=== PATIENT | male | born 1975 | race Hispanic/Latino ===

== ENCOUNTER 2019-11-16 22:23 | Emergency (ER) | payer SELFPAY ==
[~2019-11-16] VITALS: Ht 165.1 cm; Wt 108.0 kg
[2019-11-16 22:49] LABS: BASOPHILS % 0.5 % (0.0-1.0); EOSINOPHILS # (AUTO) 0.1 (0.0-0.4); EOSINOPHILS % 1.5 % (0.0-6.0); HEMOGLOBIN 16.2 g/dL (14.0-18.0); LYMPHOCYTES # (AUTO) 2.2 (1.0-3.2); LYMPHOCYTES % 27.7 % (18.0-39.1); MEAN CORPUSCULAR HGB CONC 35.2 g/dL (31-35); MEAN CORPUSCULAR VOLUME 82.3 fL (81-99); MONOCYTES # (AUTO) 0.6 (0.2-0.8); MONOCYTES % 7.5 % (4.4-11.3); NEUTROPHILS # (AUTO) 4.9 (2.1-6.9); NEUTROPHILS % 62.2 % (38.7-80.0); PLATELET COUNT 317 x10e3/uL (140-360); RED BLOOD COUNT 5.59 x10e6/uL (4.3-5.7); RED CELL DISTRIBUTION WIDTH 12.4 % (11.7-14.4)
[2019-11-16 23:04] LABS: ANION GAP 20.4 mmol/L (8-16); CALCIUM 9.1 mg/dL (8.4-10.2); CREATININE, SERUM 1.29 mg/dL (0.72-1.25); POTASSIUM 4.4 mmol/L (3.5-5.1)
[2019-11-16] MEDS ORDERED: SODIUM CHLORIDE 0.9% 1000ML 1,000 ML IV ONE (23:15)
[2019-11-16] MEDS ORDERED: INSULIN REGULAR, HUMAN 100 UNIT/1 ML 3ML VIAL SQ ONE (23:15)
[2019-11-16] MEDS ORDERED: INSULIN REGULAR, HUMAN 100 UNIT/1 ML 3ML VIAL IV ONE (23:15)
--- OUTSIDE RECORDS SUMMARY | 2019-11-17 00:17 | XMS REPORT | Continuity of Care Document ---
Author Author [facility] t Organization [facility] Address [address] [place] [address] Phone Unavailable Care Team Providers Care Artistic Director Name Role Phone Unavailable Unavailable Payers Payer Name Policy Type Policy Number Effective Date Expiration Date S ource Problems This patient has no known problems. Allergies, Adverse Reactions, Alerts Allergy Name Allergy Type Status Severity Reaction(s) Onset Date Inacti ve Date Treating Clinician Comments Source No Known Allergies DA Active U 2019-01-04 00:00:00 [facility] No Known Allergies DA Active U 2018-01-12 00:00:00 [facility] Medications This patient has no known medications. Procedures This patient has no known procedures. Results Test Description Test Time Test Comments Results Result Comments Source COMPREHENSIVE METABOLIC PANEL 2019-01-04 15:14:00 Test Item SODIUM (test code = NA) 133 mmol/L 135-148 L POTASSIUM (test code = K) 3.4 mmol/L 3.5-5.1 L CHLORIDE (test code = CL) 97 mmol/L 101-109 L CARBON DIOXIDE (test code = CO2) 26.3 mmol/L 21-32 N ANION GAP (test code = GAP) 13 mmol/L 10-20 N GLUCOSE (test code = GLU) 369 mg/dL 74-106 H BLOOD UREA NITROGEN (test code = BUN) 9 mg/dL 3-21 N CREATININE (test code = CREAT) 1.03 mg/dL 0.55-1.3 N BUN/CREATININE RATIO (test code = BUN/CREA) 8.7 10-20 L TOTAL PROTEIN (test code = PROT) 6.8 g/dL 6.5-8.4 N ALBUMIN (test code = ALB) 2.9 g/dL 3.4-4.8 L GLOBULIN (test code = GLOB) 3.9 G/DL 1-10 N ALBUMIN/GLOBULIN RATIO (test code = A/G) 0.7 RATIO 0.75-1.50 L CALCIUM (test code = CA) 8.8 mg/dL 8.4-10.2 N BILIRUBIN TOTAL (test code = BILT) 1.60 mg/dL 0.0-1.0 H SGOT/AST (test code = AST) 15 U/L 6-32 N SGPT/ALT (test code = ALT) 28 U/L 12-78 N N ote: Change in REFERENCE RANGE due to new reagent method. ALKALINE PHOSPHATASE TOTAL (test code = ALKP) 47 U/L 38-126 N CBC W/AUTO [id number] 14:39:00* Test Item Value Reference Range Interpretation Comments WHITE BLOOD CELL (test code = WBC) 11.4 K/mm3 4.5-12.5 N RED BLOOD CELL (test code = RBC) 4.99 mill/mm3 4.0-5.8 N HEMOGLOBIN (test code = HGB) 14.6 gram/dL 13.0-17.5 N HEMATOCRIT (test code = HCT) 40.3 % 42.0-52.0 L MEAN CELL VOLUME (test code = MCV) 80.8 fL 80-98 N MEAN CELL HGB (test code = MCH) 29.3 picogram 27.0-33.0 N MEAN CELL HGB CONCETRATION (test code = MCHC) 36.2 gram/dL 33.0-36. 0 H RED CELL DISTRIBUTION WIDTH (test code = RDW) 11.7 % 11.6-16. 2 N RED CELL DISTRIBUTION WIDTH SD (test code = RDW-SD) 35.1 fL 37 .0-51.0 L PLATELET COUNT (test code = PLT) 243 K/mm3 150-450 N MEAN PLATELET VOLUME (test code = MPV) 10.7 fL 6.7-11.0 N NEUTROPHIL % (test code = NT%) 76.2 % 39.0-69.0 H LYMPHOCYTE % (test code = LY%) 16.5 % 25.0-55.0 L MONOCYTE % (test code = MO%) 5.0 % 0.0-10.0 N EOSINOPHIL % (test code = EO%) 1.6 % 0.0-5.0 N BASOPHIL % (test code = BA%) 0.3 % 0.0-1.0 N NEUTROPHIL # (test code = NT#) 8.70 K/mm3 1.8-7.7 H LYMPHOCYTE # (test code = LY#) 1.89 K/mm3 1.0-5.0 N MONOCYTE # (test code = MO#) 0.57 K/mm3 0-0.8 N EOSINOPHIL # (test code = EO#) 0.18 K/mm3 0.0-0.5 N BASOPHIL # (test code = BA#) 0.03 K/mm3 0.0-0.2 N URINALYSIS [id number] 14:35:00* Test Item Value Reference Range Interpretation Comments UA COLOR (test code = COLU) YELLOW YELLOW UA APPEARANCE (test code = APPU) CLEAR CLEAR UA GLUCOSE DIPSTICK (test code = DGLUU) 1000 (3+) mg/dL NEGATIVE A UA BILIRUBIN DIPSTICK (test code = BILU) NEGATIVE mg/dL NEGATIVE UA KETONE DIPSTICK (test code = KETU) 5 (Trace) mg/dL NEGATIVE A UA SPECIFIC GRAVITY (test code = SGU) 1.020 1.001-1.035 UA BLOOD DIPSTICK (test code = GWEN) neg [place]/uL NEGATIVE UA PH DIPSTICK (test code = LES) 5.0 5.0-8.0 UA PROTEIN DIPSTICK (test code = PROU) neg mg/dL Neg-15 UA UROBILINIOGEN DIPSTICK (test code = URO) norm mg/dL 0.0-0.2 UA NITRITE DIPSTICK (test code = MYNOR) NEGATIVE NEGATIVE UA LEUKOCYTE ESTERASE DIPSTICK (test code = LEUU) neg uL NEGA TIVE UA WBC (test code = WBCU) NONE SEEN per HPF 0-5 UA RBC (test code = RBCU) NONE SEEN per HPF 0-5 UA EPITHELIAL CELLS (test code = EPIU) Rare (0-1/hpf) per HPF Few UA BACTERIA (test code = BACU) TRACE per HPF NONE Urine Source? Clean CatchBASIC METABOLIC [id number] 14:26:00* Test Item Value Reference Range Interpretation Comments SODIUM (test code = NA) 136 mmol/L 135-148 N POTASSIUM (test code = K) 3.7 mmol/L 3.5-5.1 N CHLORIDE (test code = CL) 100 mmol/L 101-109 L CARBON DIOXIDE (test code = CO2) 27.7 mmol/L 21-32 N ANION GAP (test code = GAP) 12 mmol/L 10-20 N GLUCOSE (test code = GLU) 290 mg/dL 74-106 H BLOOD UREA NITROGEN (test code = BUN) 13 mg/dL 3-21 N GLOMERULAR FILTRATION RATE (test code = GFR) > 60 mL/min >=60 Estimated GFR by using Modified MDRD formula.Chronic kidney disease is defined as either kidney damageor GFR <60 mL/min/1.73 m2 for >3 months. CREATININE (test code = CREAT) 0.89 mg/dL 0.55-1.3 N BUN/CREATININE RATIO (test code = BUN/CREA) 14.6 10-20 N CALCIUM (test code = CA) 9.3 mg/dL 8.4-10.2 N [id number] 14:26:00* Test Item Value Reference Range Interpretation Comments TROPONIN-I (test code = TROPI) <0.015 ng/mL 0.00-0.056 N - CT HEAD/BRAIN W/O [id number] 14:10:00 Name: DIONAMNA [facility] : 1975 Age/S: 43 / M [address] [facility] Unit #: [id number] Loc: [place] [address] Phys: JohnMatShawanda DO Acct: [id number] Dis Date: Status: REG ER PHONE #: [phone] Exam Date: 10/14/2018 1325 FAX #: [phone] Reason: dizziness EXAMS: CPT CODE: [id number] CT HEAD/BRAIN W/O CONT 66949 HISTORY: dizziness TECHNIQUE: Noncontrast 2.[address] of the head. Examination acquired within 24 hours of arrival. Automated exposure control for dose reduction. COMPARISON: None FINDINGS: No acute hemorrhage. No intracranial mass, mass effect, or midline shift. No CT evidence of acute infarct. Lemos-white matter differentiation is preserved. No hydrocephalus. No extra-axial fluid collection. Bilateral maxillary sinus polyps. Remainder of the paranasal sinuses are clear.. Right mastoid air cells and middle ear cavities are clear. Partial opacification of the left mastoid air cells. Copious amount of cerumen is present in the bilateral external auditory canals.. Orbital contents are unremarkable. Calvarium and skull base are intact. Nonfusion of the posterior elements of C1 is noted incidentally. IMPRESSION: No acute intracranial process. Partial opacification of the left mastoid air cells. Please co rrelate clinically for mastoiditis. at 1410 Reported and signed by: Raymundo Ospina MD CC: Shawanda Lopez DO Technologist:KIKI RUSSELL RT(R),CT CTDI: DLP: Trnscb Date/Time: 10/14/2018 (1410) [id number] Orig Print D/T: S: 10/14/2018 (5191) PAGE 1 Signed Report BASIC METABOLIC [id number] 14:03:00* Test Item Value Reference Range Interpretation Comments SODIUM (test code = NA) 136 mmol/L 135-148 N POTASSIUM (test code = K) 3.7 mmol/L 3.5-5.1 N CHLORIDE (test code = CL) 100 mmol/L 101-109 L CARBON DIOXIDE (test code = CO2) 27.7 mmol/L 21-32 N ANION GAP (test code = GAP) 12 mmol/L 10-20 N GLUCOSE (test code = GLU) 290 mg/dL 74-106 H BLOOD UREA NITROGEN (test code = BUN) 13 mg/dL 3-21 N GLOMERULAR FILTRATION RATE (test code = GFR) > 60 mL/min >=60 Estimated GFR by using Modified MDRD formula.Chronic kidney disease is defined as either kidney damageor GFR <60 mL/min/1.73 m2 for >3 months. CREATININE (test code = CREAT) 0.89 mg/dL 0.55-1.3 N BUN/CREATININE RATIO (test code = BUN/CREA) 14.6 10-20 N CALCIUM (test code = CA) 9.3 mg/dL 8.4-10.2 N [id number] 14:03:00* Test Item Value Reference Range Interpretation Comments TROPONIN-I (test code = TROPI) ng/mL 0-0.045 - XR CHEST 1 [id number] 13:57:00 Name: AMNA ASHLEY [facility] : 1975 Age/S:43 /M [address] [facility] Unit#:[id number] Loc: [place] [address] Phys: Shawanda Lopez DO Dis Date: PHONE #: [phone] Status: REG ER FAX #: [phone] Exam Date: 10/14/2018 Reason: WEAKNESS EXAMS: CPT CODE: [id number] XR CHEST 1 V [id number] REASON FOR EXAM: WEAKNESS Exam Order Date: 10/14/2018 1:12 PM Ordering M.D.: Shawanda Lopez DO PROCEDURE: - XR CHEST 1 V COMPARISON: Frontal chest radiograph January 12, 2018 FINDINGS: The lungs are clear. There is no pleural effusion or pneumothorax. Pulmonary vascularity is within normal limits. Cardiomediastinal silhouette is normal in size for technique. The mediastinal contours are within normal limits. Degenerative changes are present in the spine. Surgical clips in the right upper quadrant are unchanged and likely from prior cholecystectomy. IMPRESSION: No acute cardiopulmonary process. at 5439 Reported and signed by: Raymundo Ospina MD CC: Shawanda Lopez DO Technologist: KIKI RUSSELL, RT(R),CT Trnscrpt Data: 10/14/2018 (2325) [id number] Orig Print D/T: S: 10/14/2018 (4246) PAGE 1 Signed Report CBC W/O [id number] 13:53:00* Test Item Value Reference Range Interpretation Comments WHITE BLOOD CELL (test code = WBC) 9.2 K/mm3 4.5-12.5 N RED BLOOD CELL (test code = RBC) 5.29 mill/mm3 4.0-5.8 N HEMOGLOBIN (test code = HGB) 15.2 gram/dL 13.0-17.5 N HEMATOCRIT (test code = HCT) 44.0 % 42.0-52.0 N MEAN CELL VOLUME (test code = MCV) 83.2 fL 80-98 N MEAN CELL HGB (test code = MCH) 28.7 picogram 27.0-33.0 N MEAN CELL HGB CONCETRATION (test code = MCHC) 34.5 gram/dL 33.0-36. 0 N RED CELL DISTRIBUTION WIDTH (test code = RDW) 11.7 % 11.6-16. 2 N RED CELL DISTRIBUTION WIDTH SD (test code = RDW-SD) 35.6 fL 37 .0-51.0 L PLATELET COUNT (test code = PLT) 301 K/mm3 150-450 N MEAN PLATELET VOLUME (test code = MPV) 9.9 fL 6.7-11.0 N
--- NOTE | 2019-11-17 00:29 | Emergency Department Note ---
History of Present Illnes History of Present Illness Chief Complaint: General Medicine Complaints History of Present Illness This is a 44 year old male REPORTS ELEVATED BLOOD GLUCOSE AT HOME; HAS NOT TAKEN MEDICATION FOR DM "BECAUSE I RAN OUT OF MY METFORMIN ABOUT A WEEK AGO." PTS V/S/S; NAD NOTED; . Historian: Patient Arrival Mode: Car Regulatory Law Specialist Required: No Onset (how long ago): day(s) (7) Location: NONE Quality: ELEVATED BLOOD SUGAR Radiation: Reports non-radiation Severity: moderate Onset quality: gradual Duration (how long): day(s) (7) Timing of current episode: constant Progression: worsening Context: Denies recent illness, Denies recent surgery, Denies trauma/injury Relieving factors: none Exacerbating factors: none Associated symptoms: Reports denies other symptoms Past Medical/Family History Physician Review I have reviewed the patient's past medical and family history. Any updates have been documented here. Past Medical History Recent Fever: No Clinical Suspicion of Infectio: No New/Unexplained Change in Ment: No Past Medical History: Diabetes Past Surgical History: None Social History Smoking Cessation: Never Smoker Counseling Performed: No Alcohol Use: Occasional Any Illegal Drug Use: No Other Any Pre-Existing Lines (PICC,: No Review of Systems Review of Systems Constitutional: Reports no symptoms EENTM: Reports no symptoms Cardiovascular: Reports no symptoms Respiratory: Reports no symptoms Gastrointestinal: Reports no symptoms Genitourinary: Reports no symptoms Musculoskeletal: Reports no symptoms Integumentary: Reports no symptoms Neurological: Reports no symptoms Psychological: Reports no symptoms Endocrine: Reports no symptoms Hematological/Lymphatic: Reports no symptoms Physical Exam Related Data Triage Vital Signs Vital Signs Date Time Temp Pulse Resp B/P (MAP) Pulse Ox O2 Delivery O2 Flow Rate FiO2 11/16/19 22:35 98.0 84 16 154/101 98 Room Air Vital signs reviewed: Yes Physical Exam CONSTITUTIONAL Constitutional: Present well-developed, Present well-nourished HENT HENT: Present normocephalic, Present atraumatic, Present oropharynx clear/moist, Present nose normal HENT L/R: Present left ext ear normal, Present right ext ear normal EYES Eyes: Reports PERRL, Reports conjunctivae normal NECK Neck: Present ROM normal PULMONARY Pulmonary: Present effort normal, Present breath sounds normal CARDIOVASCULAR Cardiovascular: Present regular rhythm, Present heart sounds normal, Present capillary refill normal, Present normal rate GASTROINTESTINAL Abdominal: Present soft, Present nontender, Present bowel sounds normal GENITOURINARY Genitourinary: Present exam deferred SKIN Skin: Present warm, Present dry MUSCULOSKELETAL Musculoskeletal: Present ROM normal NEUROLOGICAL Neurological: Present alert, Present oriented x 3, Present no gross motor or sensory deficits PSYCHOLOGICAL Psychological: Present mood/affect normal, Present judgement normal Results Laboratory Result Diagram: 11/16/19223911/16/192239 Laboratory Laboratory Tests Test 11/16/19 22:40 White Blood Count 7.88 x10e3/uL (4.8-10.8) Red Blood Count 5.59 x10e6/uL (4.3-5.7) Hemoglobin 16.2 g/dL (14.0-18.0) Hematocrit 46.0 % (38.2-49.6) Mean Corpuscular Volume 82.3 fL (81-99) Mean Corpuscular Hemoglobin 29.0 pg (28-32) Mean Corpuscular Hemoglobin Concent 35.2 g/dL (31-35) Red Cell Distribution Width 12.4 % (11.7-14.4) Platelet Count 317 x10e3/uL (140-360) Neutrophils (%) (Auto) 62.2 % (38.7-80.0) Lymphocytes (%) (Auto) 27.7 % (18.0-39.1) Monocytes (%) (Auto) 7.5 % (4.4-11.3) Eosinophils (%) (Auto) 1.5 % (0.0-6.0) Basophils (%) (Auto) 0.5 % (0.0-1.0) Neutrophils # (Auto) 4.9 (2.1-6.9) Lymphocytes # (Auto) 2.2 (1.0-3.2) Monocytes # (Auto) 0.6 (0.2-0.8) Eosinophils # (Auto) 0.1 (0.0-0.4) Basophils # (Auto) 0.0 (0.0-0.1) Absolute Immature Granulocyte (auto 0.05 x10e3/uL (0-0.1) Sodium Level 136 mmol/L (136-145) Potassium Level 4.4 mmol/L (3.5-5.1) Chloride Level 102 mmol/L (98-107) Carbon Dioxide Level 18 mmol/L (22-29) Anion Gap 20.4 mmol/L (8-16) Blood Urea Nitrogen 9 mg/dL (7-26) Creatinine 1.29 mg/dL (0.72-1.25) Estimat Glomerular Filtration Rate 60 ML/MIN (60-) BUN/Creatinine Ratio 7 (6-25) Glucose Level 511 mg/dL (74-118) Calcium Level 9.1 mg/dL (8.4-10.2) Lab results reviewed: Yes Assessment & Plan Medical Decision Making MDM PT WITH ELEVATED BLOOD SUGAR CBC, BMP ORDERED TO EVAL FOR RENAL INSUFFICIENCY, DKA, ELECTROLYTE ABNORMALITY PT WITH BS OF 511 REGULAR INSULIN 10 UNITS SQ ORDERED REGULAR INSULIN 10 UNITS IV ORDERED 1 LITER NS IV ORDERED Reassessment Reassessment time: 02:55 Reassessment STATES FEELS MUCH BETTER AND IS READY TO GO HOME Assessment & Plan Final Impression: (1) Uncontrolled diabetes mellitus (2) Hyperglycemia Depart Disposition: HOME, SELF-CARE Last Vital Signs Date Time Temp Pulse Resp B/P (MAP) Pulse Ox O2 Delivery O2 Flow Rate FiO2 11/16/19 22:35 98.0 84 16 154/101 98 Room Air Medications in the ED Sodium Chloride 1,000 ml @ 999 mls/hr Q1H1M ONCE IV ; Start 11/16/19 at 23:15; Stop 11/17/19 at 00:15; Status DC Insulin Human Regular 10 unit ONCE ONCE SQ ; Start 11/16/19 at 23:15; Stop 11/16/19 at 23:18; Status DC Insulin Human Regular 10 unit ONCE ONCE IV ; Start 11/16/19 at 23:15; Stop 11/16/19 at 23:18; Status CHANTAL SELBY MD Nov 17, 2019 00:29
[2019-11-17 02:36] LABS: ANION GAP 19.8 mmol/L (8-16); BLOOD UREA NITROGEN 9 mg/dL (7-26); BUN/CREATININE RATIO 10 (6-25); CALCIUM 8.7 mg/dL (8.4-10.2); CARBON DIOXIDE 18 mmol/L (22-29); CHLORIDE 107 mmol/L (98-107); CREATININE, SERUM 0.88 mg/dL (0.72-1.25); EST GLOMERULAR FILTRATION RATE > 60 ML/MIN (60-); GLUCOSE 249 mg/dL (74-118); POTASSIUM 3.8 mmol/L (3.5-5.1); SODIUM 141 mmol/L (136-145)
[2019-11-17 03:23] VITALS: BP 150/100
== END 2019-11-17 03:25 | disposition home or self-care (01) ==
LOC: ER 22:35
DX: E11.65 Type 2 diabetes mellitus with hyperglycemia (principal)
CPT/HCPCS: 36415; 80048; 82948; 85025; 99284; J1817; J7030